=== PATIENT | male | born 1985 | race Caucasian/White ===

== ENCOUNTER → 2025-05-21 | Outpatient (REF) | payer OTHER ==
[2025-05-21 19:37] LABS: PLATELET COUNT, AUTOMATED 283 10^3/uL (150-450)
[2025-05-21 20:06] LABS: PSA SCREENING 0.72 NG/ML (< 4.00)
[2025-05-21 20:29] LABS: TESTOSTERONE 1748.0 NG/DL (241-827)
== END ==
LOC: M SFHCLERA 08:48
PROVIDERS: ATTEND Physician Assistant
DX: E29.1 Testicular hypofunction (principal)
CPT/HCPCS: 84403; 85027; G0103